=== PATIENT | male | born 1970 | race Caucasian/White ===

== ENCOUNTER 2016-06-17 14:57 | Outpatient (CLI) | payer OTHER | END 2016-06-17 14:58 | disposition home or self-care (01) | DX: M19.072 Primary osteoarthritis, left ankle and foot (principal); M77.32 Calcaneal spur, left foot ==

== ENCOUNTER 2016-06-18 08:00 | Outpatient (CLI) | payer OTHER | END 2016-06-18 23:59 | DX: R19.7 Diarrhea, unspecified (principal) ==

== ENCOUNTER 2016-06-22 08:00 | Outpatient (CLI) | payer OTHER | END 2016-06-22 08:01 | DX: R19.7 Diarrhea, unspecified (principal) ==

== ENCOUNTER 2016-07-29 06:08 | Day surgery (SDC) | payer OTHER ==
[2016-07-29] MEDS ORDERED: LACTATED RINGERS 1,000 ML IV ONE (06:58)
[2016-07-29] MEDS ORDERED: fentaNYL 100 MCG/2 ML VIAL IVP ONE (07:32)
[2016-07-29] MEDS ORDERED: MIDAZOLAM 2 MG/2 ML VIAL IVP ONE (07:32)
== END 2016-07-29 06:09 | disposition home or self-care (01) ==
PROC: 0DBK8ZX Excision of Ascending Colon, Via Natural or Artificial Opening Endoscopic, Diagnostic (ICD-10-PCS; 2016-07-29)
PROC: 0DBL8ZX Excision of Transverse Colon, Via Natural or Artificial Opening Endoscopic, Diagnostic (ICD-10-PCS; 2016-07-29)
PROC: 0DBN8ZX Excision of Sigmoid Colon, Via Natural or Artificial Opening Endoscopic, Diagnostic (ICD-10-PCS; 2016-07-29)
PROC: 0DBP8ZX Excision of Rectum, Via Natural or Artificial Opening Endoscopic, Diagnostic (ICD-10-PCS; 2016-07-29)
PROC: 0DBM8ZX Excision of Descending Colon, Via Natural or Artificial Opening Endoscopic, Diagnostic (ICD-10-PCS; 2016-07-29)
PROC: 0DBN8ZX Excision of Sigmoid Colon, Via Natural or Artificial Opening Endoscopic, Diagnostic (ICD-10-PCS; principal; 2016-07-29 07:30)
DX: R19.7 Diarrhea, unspecified (principal); D12.5 Benign neoplasm of sigmoid colon; F17.200 Nicotine dependence, unspecified, uncomplicated
CPT/HCPCS: 45380; 45385; J7120

== ENCOUNTER 2017-03-31 15:37 | Outpatient (CLI) | payer OTHER ==
--- NOTE | 2017-04-01 10:43 | XRAY Report ---
DATE OF SERVICE: 03/31/2017 THREE VIEW RIGHT KNEE: 03/31/2017 CLINICAL INDICATION: Pain. FINDINGS: AP, lateral, sunrise views of the right knee demonstrate no evidence of fracture or dislocation. No effusion is present. The joint spaces are preserved. IMPRESSION: NORMAL RIGHT KNEE. TD: 04/01/2017 11:42
== END 2017-03-31 15:38 | disposition home or self-care (01) ==
LOC: DI 15:37
PROVIDERS: ATTEND Physician Assistant Medical
DX: M25.561 Pain in right knee (principal)

== ENCOUNTER 2019-04-17 08:48 | Outpatient (CLI) | payer OTHER ==
--- NOTE | 2019-04-18 05:06 | XRAY Report ---
Reason: PERSISTENT COUGH Procedure Date: 04/17/2019 Accession Number: [id number] / [id number] Procedure: XR - Chest 2 View X-Ray CPT Code: 85521 Final Report FULL RESULT: EXAM: CHEST RADIOGRAPHY EXAM DATE: 04/17/2019 09:05 AM. CLINICAL HISTORY: PERSISTENT COUGH. COMPARISON: None. TECHNIQUE: 2 views. FINDINGS: Lungs/Pleura: No focal opacities evident. No pleural effusion. No pneumothorax. Normal volumes. Mediastinum: Heart and mediastinal contours are unremarkable. Other: None. IMPRESSION: Normal 2-view chest radiography. [facility]
== END 2019-04-17 08:49 | disposition home or self-care (01) ==
LOC: DI 08:48
PROVIDERS: ATTEND Physician Assistant Medical
DX: R05 Cough (principal)
CPT/HCPCS: 71046

== ENCOUNTER 2023-01-14 02:45 | Emergency (ER) | payer BC, OTHER ==
[2023-01-14 02:57] VITALS: BP 137/83; O2SAT 99
[2023-01-14] MEDS ORDERED: CYCLOBENZAPRINE 10 MG Prepack 2 PO PRN (03:11)
--- NOTE | 2023-01-14 03:15 | ED Physician Documentation ---
History of Present Illness - Stated complaint Stated Complaint: BACK PX - Chief complaint Chief Complaint: Back Pain - History obtained from History obtained from: Patient - Additonal information Additional information: 52yM with pmh sciatica p/w R lower back pain radiating down the leg since 6am yesterday. denies numbness/weakness or specific injury. denies urinary sx, saddle anesthesia fnd PD PAST MEDICAL HISTORY - Past Medical History Past Medical History: No Cardiovascular: None Respiratory: None Endocrine/Autoimmune: None : None Derm: None - Past Surgical History Past Surgical History: No - Present Medications Home Medications: Ambulatory Orders Medication Instructions Recorded Confirmed No Known Home Medications 09/24/14 01/14/23 - Allergies Allergies/Adverse Reactions: Allergies Allergy/AdvReac Type Severity Reaction Status Date / Time No Known Drug Allergies Allergy Verified 01/14/23 02:56 - Social History Does the pt smoke?: No Smoking Status: Never smoker Does the pt drink ETOH?: Yes ETOH Use: Beer Does the pt have substance abuse?: No - Immunizations Immunizations are current?: Yes - POLST Patient has POLST: No PD ED PE NORMAL - Vitals Vital signs reviewed: Yes - General General: Alert and oriented X 3, No acute distress, Well developed/nourished - HEENT HEENT: Atraumatic, PERRL, EOMI - Back Back: No spinal TTP, Other (R lower back ttp along lumbosacral region) - Derm Derm: Normal color, Warm and dry - Extremities Extremities: Other (2+ BL DP pulses. nromal sensation and movement BL LE. ) Results - Vitals Vitals: Vital Signs - 24 hr 01/14/23 02:45 Temperature 36.5 C Heart Rate 78 Respiratory 16 Rate Blood Pressure 137/83 H O2 Saturation 99 Oxygen O2 Source Room air PD Medical Decision Making - ED course ED course: 52yM presents with R lower back pain radiating down the leg, likely sciatica given remote pmh back problems. no red flag symptoms concerning for spinal impingement, cauda equina, epidural abscess, etc. flexeril prepack provided. return precautions given. plan to f/u with pcp for referral to pt outpatient. Departure - Departure Disposition: 01 Home, Self Care Clinical Impression: Lower back pain Condition: Good Instructions: Flexeril Comments: You were seen in the emergency department for lower back pain and received a muscle relaxer. Please follow-up with your primary care provider for referral to physical therapy as needed and return to the emergency department if you have any new or worsening symptoms or other concerns.
== END 2023-01-14 03:26 | disposition home or self-care (01) ==
LOC: ED 02:45
DX: M54.50 Low back pain, unspecified (principal)
CPT/HCPCS: 99282; 99283